=== PATIENT | female | born 1970 | race Hispanic/Latino ===

== ENCOUNTER 2017-11-09 02:17 | Inpatient (IN) | payer BC, MEDICAID ==
[2017-11-09] MEDS ORDERED: Sodium Chloride 0.9% 1,000 ML IV SCH ×2 (03:45→20:30)
--- NOTE | 2017-11-09 05:19 | ED PDOC ---
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 Describes pain as sudden onset sharp pain radiating from the RLQ to the right groin area. Reports (+) nausea and vomiting, but (-) diarrhea, fever, or urinary symptoms. Denies ever experiencing this pain before. Denies history of kidney stones. PCP: None (Opal Sandoval PA-C) Past Medical History Reviewed: Historical Data, Nursing Documentation, Vital Signs - Medical History PMH: No Chronic Diseases - Surgical History Surgical History: No Surg Hx - Family History Family History: States: Unknown Family Hx - Living Arrangements Living Arrangements: With Family <Opal Sandoval PA-C - Last Filed: 11/09/17 05:58> <Stephane Suggs - Last Filed: 11/09/17 06:42> <Ashlyn Burrell - Last Filed: 11/09/17 07:31> Vital Signs: Last Vital Signs Temp 98.6 F 11/09/17 02:51 Pulse 60 11/09/17 02:51 Resp 16 11/09/17 02:51 BP 126/49 L 11/09/17 02:51 Pulse Ox 98 11/09/17 05:59 - Home Medications Home Medications: Ambulatory Orders Medication Instructions Recorded No Known Home Med 08/31/16 - Allergies Allergies/Adverse Reactions: Allergies Allergy/AdvReac Type Severity Reaction Status Date / Time No Known Allergies Allergy Verified 08/31/16 11:20 Review of Systems ROS Statement: Except As Marked, All Systems Reviewed And Found Negative Constitutional: Negative for: Fever Gastrointestinal: Positive for: Nausea, Vomiting, Abdominal Pain. Negative for : Diarrhea Genitourinary Female: Negative for: Dysuria, Frequency, Incontinence, Hematuria <Opal Sandoval PA-C - Last Filed: 11/09/17 05:58> Physical Exam - Reviewed Nursing Documentation Reviewed: Yes Vital Signs Reviewed: Yes <Opal Sandoval PA-C - Last Filed: 11/09/17 05:58> <Stephane Suggs - Last Filed: 11/09/17 06:42> <Sa Ashantiu Mark - Last Filed: 11/09/17 07:31> - Physical Exam Comments: GENERAL: AAOx2, in mild painful distress. SKIN: Warm, dry; (-) cyanosis. EYES: (-) conjunctival pallor, (-) scleral icterus. ENMT: Mucous membranes dry. NECK: (-) tenderness, (-) stiffness, (-) lymphadenopathy. CHEST AND RESPIRATORY: (-) rales, (-) rhonchi, (-) wheezes; breath sounds equal bilaterally. HEART AND CARDIOVASCULAR: (-) irregularity; (-) murmur, (-) gallop. ABDOMEN AND GI: (-) distention. Bowel sounds active; (+) tenderness in right flank, (-) guarding, (-) rebound, (-) palpable masses, (-) CVA tenderness. EXTREMITIES: (-) deformity, (-) edema, (+) distal pulses. NEURO AND PSYCH: Mental status as above; (-) focal findings. BACK: no CVA tenderness (Opal Sandoval PA-C) - Laboratory Results Result Diagrams: 11/09/17 05:08 11/09/17 05:08 - ECG O2 Sat by Pulse Oximetry: 98 (RA) Pulse Ox Interpretation: Normal <Opal Sandoval PA-C - Last Filed: 11/09/17 05:58> - Laboratory Results Result Diagrams: 11/09/17 05:08 11/09/17 05:08 <Stephane Suggs - Last Filed: 11/09/17 06:42> - Laboratory Results Result Diagrams: 11/09/17 05:08 11/09/17 05:08 <BurrellSa odiliariya Flores - Last Filed: 11/09/17 07:31> Medical Decision Making <Opal Sandoval PA-C - Last Filed: 11/09/17 05:58> <Stephane Suggs - Last Filed: 11/09/17 06:42> <Ashlyn Burrell Mark - Last Filed: 11/09/17 07:31> Medical Decision Makin Initial plan: * CT A/P * Labs * UPreg * NS IV * Toradol 30mg IVP * UCx * UA 0421 * Zofran Inj 4mg IVP Scribe Attestation: Documented by Hafsa Knapp acting as a scribe for Opal Sandoval PA-C. Scribe Attestation: All medical record entries made by the Scribe were at my direction and personally dictated by me. I have reviewed the chart and agree that the record accurately reflects my personal performance of the history, physical exam, medical decision making, and the department course for this patient. I have also personally directed, reviewed, and agree with the discharge instructions and disposition. (Opal Sandoval PA-C) 3556 FINDINGS: Lower thorax: No acute findings. ABDOMEN: Liver: Unremarkable. Gallbladder and bile ducts: Unremarkable. No calcified stones. No ductal dilation. Pancreas: Unremarkable. No ductal dilation. Spleen: Unremarkable. No splenomegaly. Adrenals: Unremarkable. No mass. Kidneys and ureters: Slight right perinephric induration with mild right hydronephrosis which extends to a large right UPJ calculus which measures 12 x 7 x 13 mm. Stomach and bowel: Unremarkable. No obstruction. No mucosal thickening. Appendix: A normal appendix is seen. PELVIS: Bladder: Unremarkable. No stones. Reproductive: Unremarkable as visualized. ABDOMEN and PELVIS: Intraperitoneal space: Unremarkable. No free air. No significant fluid collection. Bones/joints: No acute fracture. No dislocation. Soft tissues: Small fat filled umbilical hernia. Vasculature: Unremarkable. No abdominal aortic aneurysm. Lymph nodes: Unremarkable. No enlarged lymph nodes. IMPRESSION: 1. Large right UPJ calculus measuring 12 x 7 x 13 mm with secondary obstructive uropathy of the right upper tract which is new since 03/17/2011. 2. Otherwise negative CT abdomen/pelvis which is otherwise unchanged. [address] 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 Believes that stone will likely not pass on its own. He will consult on patient and recommends admission (INPATIENT MED/SURG) under Dr. Mcintyre. Scribe Attestation: Documented by Hafsa Knapp acting as a scribe for Stephane Suggs MD. Scribe Attestation: All medical record entries made by the Scribe were at my direction and personally dictated by me. I have reviewed the chart and agree that the record accurately reflects my personal performance of the history, physical exam, medical decision making, and the department course for this patient. I have also personally directed, reviewed, and agree with the discharge instructions and disposition. (Stephane Suggs) blood lactate 5.8. Information conveyed to Dr. Suggs re: patient who has already been admitted. Per discussion with Dr. Mcintyre, change admission location to Telemetry. (Ashlyn Burrell) Disposition <Opal Sandoval PA-C - Last Filed: 11/09/17 05:58> - Patient ED Disposition Is Patient to be Admitted: Yes Discussed With DrTevin: Efrain Mosher - Disposition Disposition Time: 06:43 - Pt Status Changed To: Hospital Disposition Of: Inpatient (INPATIENT MED/SURG) - Admit Certification Admit to Inpatient:: After my assessment, the patient will require hospitalization for at least two midnights. This is because of the severity of symptoms shown, intensity of services needed, and/or the medical risk in this patient being treated as an outpatient. <Stephane Suggs - Last Filed: 11/09/17 06:42> - Patient ED Disposition Is Patient to be Admitted: Yes Doctor Will See Patient In The: Hospital - POA Present On Arrival: None <Ashlyn Burrell - Last Filed: 11/09/17 07:31> - Clinical Impression Clinical Impression: Back pain - Disposition Condition: FAIR
[2017-11-09 05:36] LABS: BASO % 0.3 % (0.0-2.0); EOS # 0.1 K/uL (0.0-0.7); EOS % 0.3 % (0.0-4.0); HEMOGLOBIN 13.8 g/dL (12.0-16.0); LYMPH # 1.2 K/uL (1.0-4.3); LYMPH % 6.7 % (20.0-40.0); MEAN CELL VOLUME 94.4 fl (81.0-99.0); MEAN CORPUSCULAR HEMOGLOBIN 30.8 pg (27.0-31.0); MEAN CORPUSCULAR HGB CONC 32.6 g/dL (33.0-37.0); MEAN PLATELET VOLUME 10.8 fl (7.2-11.7); MONO # 0.4 K/uL (0.0-0.8); NEUT # 16.5 K/uL (1.8-7.0); NEUT % 90.7 % (50.0-75.0); PLATELET COUNT 144 K/uL (130-400); RBC 4.47 Mil/uL (3.80-5.20); WHITE BLOOD COUNT 18.2 K/uL (4.8-10.8)
[2017-11-09 05:52] LABS: SQUAMOUS EPITHIAL 10 /hpf (0-5); URINE BILIRUBIN NEGATIVE (NEGATIVE); URINE BLOOD MODERATE (NEGATIVE); URINE CLARITY CLOUDY (Clear); URINE COLOR YELLOW (YELLOW); URINE GLUCOSE (UA) NEG (Normal); URINE LEUKOCYTE ESTERASE LARGE Leu/uL (Negative); URINE NITRATE NEGATIVE (NEGATIVE); URINE PROTEIN 30 mg/dL (NEGATIVE); URINE UROBILINOGEN 0.2-1.0 mg/dL (0.2-1.0); WBC CLUMPS FEW /hpf
[2017-11-09 05:57] LABS: ALB/GLOB RATIO 1.3 (1.0-2.1); ALBUMIN 4.7 g/dL (3.5-5.0); ALT/SGPT 19 U/L (9-52); AST/SGOT 28 U/L (14-36); BLOOD UREA NITROGEN 16 mg/dl (7-17); CALCIUM 9.5 mg/dL (8.4-10.2); GFR AFRICAN-AMERICAN > 60; GFR NON-AFRICAN AMERICAN 59
[2017-11-09] MEDS ORDERED: Sodium Chloride 0.9% 1,000 ML IV STA (06:41)
[2017-11-09] MEDS ORDERED: cefTRIAXone 2 GM in Sodium Chloride 0.9% 100 ML IVPB STA (06:47)
[2017-11-09 07:15] LABS: VENOUS BLOOD GAS BASE EXCESS -9.6 mmol/L (0.0-2.0); VENOUS BLOOD GAS PCO2 87 mmHg (40-60); VENOUS BLOOD GAS PO2 32 mm/Hg (30-55); VENOUS BLOOD PH 7.03 (7.32-7.43)
[2017-11-09] MEDS ORDERED: levoFLOXacin 750 mg in D5W 750 MG/150 ML BAG IVPB SCH (09:00)
--- NOTE | 2017-11-09 09:50 | CT ---
PROCEDURE: CT Abdomen and Pelvis without intravenous contrast HISTORY: R flank pain COMPARISON: CT scan of the abdomen and pelvis dated 03/17/2011 TECHNIQUE: Contiguous images were obtained from the domes of the diaphragms to the upper thighs without the administration of intravenous contrast. Oral contrast was not administered. Radiation dose: Total exam DLP = 1102.3 mGy-cm. This CT exam was performed using one or more of the following dose reduction techniques: Automated exposure control, adjustment of the mA and/or kV according to patient size, and/or use of iterative reconstruction technique. FINDINGS: LOWER THORAX: Unremarkable. LIVER: Unremarkable. No gross lesion or ductal dilatation. GALLBLADDER AND BILE DUCTS: Unremarkable. PANCREAS: Unremarkable. No gross lesion or ductal dilatation. SPLEEN: Unremarkable. ADRENALS: Unremarkable. No mass. KIDNEYS AND URETERS: Right ureteropelvic junction 1.3 x 0.7 cm obstructive calculus causing mild hydronephrosis. No solid mass. VASCULATURE: Unremarkable. No aortic aneurysm. BOWEL: Unremarkable. No obstruction. No gross mural thickening. APPENDIX: Unremarkable. Normal appendix. PERITONEUM: Small fat containing umbilical hernia. No free fluid. No free air. LYMPH NODES: Unremarkable. No enlarged lymph nodes. BLADDER: Unremarkable. REPRODUCTIVE: Unremarkable. BONES: No acute fracture. OTHER FINDINGS: None. IMPRESSION: Obstructive right ureteral pelvic junction 1.3 cm calculus causing mild hydronephrosis.
--- NOTE | 2017-11-09 10:27 | CP.PCM.HP ---
Past Patient History - Past Social History Smoking Status: Heavy Smoker > 10 Cigarettes Daily - PSYCHIATRIC Hx Substance Use: No - SURGICAL HISTORY Hx Section: Yes - ANESTHESIA Hx Anesthesia: Yes Hx Anesthesia Reactions: No Meds Allergies/Adverse Reactions: Allergies Allergy/AdvReac Type Severity Reaction Status Date / Time No Known Allergies Allergy Verified 08/31/16 11:20 Results - Vital Signs Recent Vital Signs: Last Vital Signs Temp 102.8 F H 11/09/17 10:01 Pulse 101 H 11/09/17 09:21 Resp 18 11/09/17 09:21 BP 104/56 L 11/09/17 09:28 Pulse Ox 98 11/09/17 09:21 - Labs Result Diagrams: 11/09/17 05:08 11/09/17 05:08 Labs: Laboratory Results - last 24 hr 11/09/17 11/09/17 11/09/17 05:08 05:08 05:20 WBC 18.2 H D RBC 4.47 Hgb 13.8 Hct 42.2 MCV 94.4 MCH 30.8 MCHC 32.6 L RDW 13.0 Plt Count 144 MPV 10.8 Neut % (Auto) 90.7 H Lymph % (Auto) 6.7 L [place] % (Auto) 2.0 Eos % (Auto) 0.3 Baso % (Auto) 0.3 Neut # (Auto) 16.5 H Lymph # (Auto) 1.2 [place] # (Auto) 0.4 Eos # (Auto) 0.1 Baso # (Auto) 0.0 pO2 VBG pH VBG pCO2 VBG HCO3 VBG Total CO2 VBG O2 Sat (Calc) VBG Base Excess VBG Potassium Glucose Lactate FiO2 Crit Value Called To Crit Value Called By Crit Value Read Back Blood Gas Notified Time Sodium 145 Potassium 4.2 Chloride 103 Carbon Dioxide 27 Anion Gap 19 BUN 16 Creatinine 1.0 Est GFR ( Amer) > 60 Est GFR (Non-Af Amer) 59 Random Glucose 151 H Calcium 9.5 Total Bilirubin 0.5 AST 28 ALT 19 Alkaline Phosphatase 72 Total Protein 8.1 Albumin 4.7 Globulin 3.5 Albumin/Globulin Ratio 1.3 Venous Blood Potassium Urine Color Yellow Urine Clarity Cloudy Urine pH 5.0 Ur Specific [place] 1.030 Urine Protein 30 Urine Glucose (UA) Neg Urine Ketones Negative Urine Blood Moderate Urine Nitrate Negative Urine Bilirubin Negative Urine Urobilinogen 0.2-1.0 Ur Leukocyte Esterase Large Urine RBC (Auto) 31 H Urine WBC Clumps (Auto) Few H Urine Microscopic WBC 329 H Ur Squamous Epith Cells 10 H 11/09/17 07:07 WBC RBC Hgb Hct MCV MCH MCHC RDW Plt Count MPV Neut % (Auto) Lymph % (Auto) [place] % (Auto) Eos % (Auto) Baso % (Auto) Neut # (Auto) Lymph # (Auto) [place] # (Auto) Eos # (Auto) Baso # (Auto) pO2 32 VBG pH 7.03 L* VBG pCO2 87 H* VBG HCO3 15.7 VBG Total CO2 25.7 VBG O2 Sat (Calc) 55.8 VBG Base Excess -9.6 L VBG Potassium > 20.0 H* Glucose 131 H Lactate 5.8 H* FiO2 21.0 Crit Value Called To regina Navarro Crit Value Called By 203 Crit Value Read Back Y Blood Gas Notified Time 714 Sodium 132.0 Potassium Chloride 98.0 Carbon Dioxide Anion Gap BUN Creatinine Est GFR ( Amer) Est GFR (Non-Af Amer) Random Glucose Calcium Total Bilirubin AST ALT Alkaline Phosphatase Total Protein Albumin Globulin Albumin/Globulin Ratio Venous Blood Potassium > 20.0 H* Urine Color Urine Clarity Urine pH Ur Specific [place] Urine Protein Urine Glucose (UA) Urine Ketones Urine Blood Urine Nitrate Urine Bilirubin Urine Urobilinogen Ur Leukocyte Esterase Urine RBC (Auto) Urine WBC Clumps (Auto) Urine Microscopic WBC Ur Squamous Epith Cells
[2017-11-09] MEDS ORDERED: Potassium CL 10mEq/100ml 100 ML IVPB SCH (11:00)
[2017-11-09 11:01] LABS: BANDS 2 % (0-2); LYMPHOCYTE 8 % (20-50); MONOCYTE 6 % (0-10); NEUTROPHIL 84 % (42-75); PLATELET ESTIMATE SLIGHTLY DECREASED (NORMAL); TOTAL CELLS COUNTED 100
[2017-11-09 11:02] LABS: ANISOCYTOSIS SLIGHT; LARGE PLATELETS PRESENT; MICROCYTOSIS SLIGHT; OVALOCYTES SLIGHT
[2017-11-09 11:03] LABS: SPHEROCYTES MODERATE
--- NOTE | 2017-11-09 11:27 | RAD ---
HISTORY: kidney stone COMPARISON: No prior. FINDINGS: BOWEL: Normal. No obstruction. No free air. BONES: Normal. OTHER FINDINGS: 10 millimeter calcification overlying the ureteral pelvic junction of the right kidney. IMPRESSION: Right-sided nephrolith.
[2017-11-09 11:58] VITALS: BMI 38.6
[2017-11-09 16:17] LABS: INR 1.1 (0.9-1.2); PROTHROMBIN TIME 12.7 Seconds (9.8-13.1)
[2017-11-09] MEDS ORDERED: Lidocaine 2% Jelly (Uro-Jet) ONE (17:43)
[2017-11-09] MEDS ORDERED: Iohexol 300 100 ML IJ ONE (17:44)
[2017-11-09] MEDS ORDERED: cefTRIAXone IV 1 gm in Dextros 50 ML IVPB ONE (17:44)
[2017-11-09] MEDS: Sodium Chloride 0.9% 1,000 ML IV SCH (18:06)
[2017-11-09] MEDS ORDERED: Midazolam 2 MG/2 ML VIAL ONE (19:44)
[2017-11-09] MEDS ORDERED: Propofol 10 mg/ml Inj (20 ML) ONE (19:44)
[2017-11-09] MEDS ORDERED: Sodium Chloride 0.9% 1,000 ML IV ONE ×2 (19:45→20:23)
[2017-11-09] MEDS ORDERED: Lidocaine 2% Jelly (5 ml) TOP ONE (19:45)
[2017-11-09] MEDS ORDERED: Lidocaine 1% 5ml Abboject IV ONE (19:46)
[2017-11-09] MEDS ORDERED: Phenylephrine 10 mg/ml Inj ONE ×2 (19:56→20:02)
[2017-11-09] MEDS ORDERED: ePHEDrine 50 mg/ml Inj ONE (19:59)
[2017-11-09] MEDS ORDERED: Acetaminophen-Codeine 300/30 mg Tab PO PRN (20:18)
[2017-11-10] MEDS: Sodium Chloride 0.9% 1,000 ML IV SCH ×2 (03:00→13:59)
[2017-11-10 08:02] LABS: CALCIUM 7.6 mg/dL (8.4-10.2)
[2017-11-10 08:03] LABS: HEMOGLOBIN 11.2 g/dL (12.0-16.0); MEAN CELL VOLUME 93.6 fl (81.0-99.0); MEAN CORPUSCULAR HEMOGLOBIN 31.1 pg (27.0-31.0); MEAN CORPUSCULAR HGB CONC 33.2 g/dL (33.0-37.0); RBC 3.6 Mil/uL (3.80-5.20); RED CELL DISTRIBUTION WIDTH 13.2 % (11.5-14.5); WHITE BLOOD COUNT 18.6 K/uL (4.8-10.8)
[2017-11-10] MEDS: cefTRIAXone 1 gm/NS 100ML IVPB SCH (08:59)
[2017-11-10] MEDS ORDERED: cefTRIAXone (Rocephin) 2 gm Inj IVPB SCH (09:00)
--- NOTE | 2017-11-10 11:50 | RAD ---
HISTORY: Status post right stent placement COMPARISON: Comparison made with prior study 11/09/2017 at 11 a.m. comparison also made with CT scan of the abdomen and pelvis 10/29/2017. FINDINGS: Current study reveals interval placement right ureteral stent. Previously noted calculus in the right UPJ region on prior CT scan is not visible on this study. BOWEL: Nonobstructive/nonspecific bowel gas pattern. BONES: Minor multilevel degenerative spondylosis. OTHER FINDINGS: None. IMPRESSION: In situ right ureteral stent. Previously noted right UPJ calculus is not visible on this study.
--- NOTE | 2017-11-10 12:50 | RAD ---
PROCEDURE: Intraoperative Fluoroscopy. HISTORY: CYSTO FINDINGS: Fluoroscopic assistance was provided . Please refer to the operative report from JAVIER Metzger.
--- NOTE | 2017-11-11 00:13 | CP.PCM.PN ---
Subjective - Date & Time of Evaluation Date of Evaluation: 11/10/17 Time of Evaluation: 17:10 Objective - Vital Signs/Intake and Output Vital Signs (last 24 hours): Temp Pulse Resp BP Pulse Ox 98.6 F 73 14 104/68 98 11/10/17 20:36 11/10/17 20:36 11/10/17 20:36 11/10/17 20:36 11/10/17 20:36 Intake and Output: 11/10/17 11/11/17 18:59 06:59 Intake Total 1800 Output Total 4 Balance 1796 - Medications Medications: Current Medications Acetaminophen (Tylenol 325mg Tab) 650 mg PO Q4 PRN PRN Reason: Fever >100.4 F Last Admin: 11/09/17 15:30 Dose: 650 mg Acetaminophen/Codeine Phosphate (Tylenol/Codeine 300 Mg/30 Mg) 1 tab PO Q4 PRN PRN Reason: Pain, moderate (4-7) Last Admin: 11/10/17 22:21 Dose: 1 tab Sodium Chloride (Sodium Chloride 0.9%) 1,000 mls @ 1,000 mls/hr IV .Q1H MUNA Last Admin: 11/09/17 05:30 Dose: 1,000 mls/hr Ceftriaxone Sodium 1 gm/ (Sodium Chloride) 100 mls @ 100 mls/hr IVPB DAILY MUNA Last Admin: 11/10/17 08:59 Dose: 100 mls/hr Sodium Chloride (Sodium Chloride 0.9%) 1,000 mls @ 999 mls/hr IV .Q1H1M MUNA Sodium Chloride (Sodium Chloride 0.9%) 1,000 mls @ 100 mls/hr IV .Q10H MUNA Stop: 11/11/17 19:40 Morphine Sulfate (Morphine) 2 mg IVP Q4 PRN PRN Reason: Pain, severe (8-10) Last Admin: 11/09/17 13:31 Dose: 2 mg - Labs Labs: 11/10/17 07:12 11/10/17 07:12 PT 12.7 Seconds (9.8-13.1) 11/09/17 15:54 INR 1.1 (0.9-1.2) 11/09/17 15:54
[2017-11-11] MEDS: Sodium Chloride 0.9% 1,000 ML IV SCH ×2 (05:29→17:57)
[2017-11-11 08:05] LABS: HEMOGLOBIN 10.7 g/dL (12.0-16.0); MEAN CORPUSCULAR HEMOGLOBIN 30.4 pg (27.0-31.0); MEAN CORPUSCULAR HGB CONC 32.4 g/dL (33.0-37.0); RBC 3.51 Mil/uL (3.80-5.20); RED CELL DISTRIBUTION WIDTH 13.4 % (11.5-14.5); WHITE BLOOD COUNT 12.7 K/uL (4.8-10.8)
[2017-11-11 08:14] LABS: BLOOD UREA NITROGEN 11 mg/dl (7-17); CALCIUM 7.9 mg/dL (8.4-10.2); GFR AFRICAN-AMERICAN > 60; GFR NON-AFRICAN AMERICAN > 60
[2017-11-11] MEDS: cefTRIAXone 1 gm/NS 100ML IVPB SCH (08:57)
--- NOTE | 2017-11-11 15:14 | RAD ---
HISTORY: pre -op COMPARISON: 11/07/2012 TECHNIQUE: Chest PA and lateral FINDINGS: LUNGS: No active pulmonary disease. PLEURA: No significant pleural effusion identified. No pneumothorax apparent. CARDIOVASCULAR: Normal. OSSEOUS STRUCTURES: No significant abnormalities. VISUALIZED UPPER ABDOMEN: Normal. OTHER FINDINGS: None. IMPRESSION: No active disease.
[2017-11-11] MEDS ORDERED: Sodium Chloride 0.9% 1,000 ML IV SCH (20:00)
[2017-11-12 05:57] LABS: BASO % 0.3 % (0.0-2.0); EOS # 0.1 K/uL (0.0-0.7); HEMOGLOBIN 11.3 g/dL (12.0-16.0); LYMPH # 2.9 K/uL (1.0-4.3); LYMPH % 25.3 % (20.0-40.0); MEAN CORPUSCULAR HEMOGLOBIN 30.8 pg (27.0-31.0); MEAN CORPUSCULAR HGB CONC 33.2 g/dL (33.0-37.0); MEAN PLATELET VOLUME 11.4 fl (7.2-11.7); MONO # 0.9 K/uL (0.0-0.8); MONO % 7.4 % (0.0-10.0); NEUT # 7.6 K/uL (1.8-7.0); NRBC % 0.1 % (0.0-0.0); RBC 3.66 Mil/uL (3.80-5.20); RED CELL DISTRIBUTION WIDTH 13.2 % (11.5-14.5); WHITE BLOOD COUNT 11.5 K/uL (4.8-10.8)
[2017-11-12 05:58] LABS: ALB/GLOB RATIO 1.1 (1.0-2.1); ALBUMIN 3.2 g/dL (3.5-5.0); ALT/SGPT 28 U/L (9-52); AST/SGOT 38 U/L (14-36); BLOOD UREA NITROGEN 9 mg/dl (7-17); CALCIUM 8.5 mg/dL (8.4-10.2); GFR AFRICAN-AMERICAN > 60; GFR NON-AFRICAN AMERICAN > 60
--- NOTE | 2017-11-12 07:28 | CON ---
HISTORY OF PRESENT ILLNESS: The patient admitted through the Emergency Room with right flank pain. CT scan revealed obstructing 10-12ml calculus obstructing the UPJ. The patient is being treated for sepsis, scheduled for cysto insertion stent. Efrain Mosher MD
[2017-11-12] MEDS: cefTRIAXone 1 gm/NS 100ML IVPB SCH (08:51)
[2017-11-12 09:14] VITALS: PULSE 60
[2017-11-12 09:15] VITALS: BP 130/71; RESP 20; TEMP 98.6; O2SAT 99
--- NOTE | 2017-11-12 09:17 | CP.PCM.PCO ---
Assessment & Plan - Assessment and Plan (Free Text) Assessment: pt. sitting up in bed, feeling well this morning, denies sob, fever ,chills, abd pain. voiding freely. pt. cleared for discharge to Home today by and Rx for meds provided to pt. cont. Cipro 500 mg po bid x 7 days cont. bacid po x 7 d pt. will f/u with in 1 week pt. has f/u appointment today with \ Rx for bloodwork outpatient provided to r/u thrombocytopenia
--- NOTE | 2017-11-12 23:43 | CP.PCM.PN ---
Subjective - Date & Time of Evaluation Date of Evaluation: 11/11/17 Time of Evaluation: 16:35 Objective - Vital Signs/Intake and Output Vital Signs (last 24 hours): Temp Pulse Resp BP Pulse Ox 98.6 F 60 20 130/71 99 11/12/17 09:00 11/12/17 09:00 11/12/17 09:00 11/12/17 09:00 11/12/17 09:00 - Labs Labs: 11/12/17 04:20 11/12/17 04:20 PT 12.7 Seconds (9.8-13.1) 11/09/17 15:54 INR 1.1 (0.9-1.2) 11/09/17 15:54
--- NOTE | 2017-11-12 23:44 | CP.PCM.DIS ---
Provider - Provider Date of Admission: 11/09/17 06:43 Attending physician: Annika Mcintyre MD Time Spent in preparation of Discharge (in minutes): 35 Hospital Course - Lab Results Lab Results: Micro Results 11/09/17 05:20 Urine Urine Culture - Final Escherichia Coli Most Recent Lab Values WBC 11.5 K/uL (4.8-10.8) H 11/12/17 04:20 RBC 3.66 Mil/uL (3.80-5.20) L 11/12/17 04:20 Hgb 11.3 g/dL (12.0-16.0) L 11/12/17 04:20 Hct 34.0 % (34.0-47.0) 11/12/17 04:20 MCV 93.0 fl (81.0-99.0) 11/12/17 04:20 MCH 30.8 pg (27.0-31.0) 11/12/17 04:20 MCHC 33.2 g/dL (33.0-37.0) 11/12/17 04:20 RDW 13.2 % (11.5-14.5) 11/12/17 04:20 Plt Count 88 K/uL (130-400) L 11/12/17 04:20 MPV 11.4 fl (7.2-11.7) 11/12/17 04:20 Neut % (Auto) 66.0 % (50.0-75.0) 11/12/17 04:20 Lymph % (Auto) 25.3 % (20.0-40.0) 11/12/17 04:20 [place] % (Auto) 7.4 % (0.0-10.0) 11/12/17 04:20 Eos % (Auto) 1.0 % (0.0-4.0) 11/12/17 04:20 Baso % (Auto) 0.3 % (0.0-2.0) 11/12/17 04:20 Neut # (Auto) 7.6 K/uL (1.8-7.0) H 11/12/17 04:20 Lymph # (Auto) 2.9 K/uL (1.0-4.3) 11/12/17 04:20 [place] # (Auto) 0.9 K/uL (0.0-0.8) H 11/12/17 04:20 Eos # (Auto) 0.1 K/uL (0.0-0.7) 11/12/17 04:20 Baso # (Auto) 0.0 K/uL (0.0-0.2) 11/12/17 04:20 Neutrophils % (Manual) 84 % (42-75) H 11/09/17 05:08 Band Neutrophils % 2 % (0-2) 11/09/17 05:08 Lymphocytes % (Manual) 8 % (20-50) L 11/09/17 05:08 Monocytes % (Manual) 6 % (0-10) 11/09/17 05:08 Platelet Estimate Slightly decreased (NORMAL) L 11/09/17 05:08 Large Platelets Present 11/09/17 05:08 Anisocytosis (manual) Slight 11/09/17 05:08 Microcytosis (manual) Slight 11/09/17 05:08 Macrocytosis (manual) Slight 11/09/17 05:08 Spherocytes Moderate 11/09/17 05:08 Ovalocytes Slight 11/09/17 05:08 PT 12.7 Seconds (9.8-13.1) 11/09/17 15:54 INR 1.1 (0.9-1.2) 11/09/17 15:54 pO2 32 mm/Hg (30-55) 11/09/17 07:07 VBG pH 7.03 (7.32-7.43) L* 11/09/17 07:07 VBG pCO2 87 mmHg (40-60) H* 11/09/17 07:07 VBG HCO3 15.7 mmol/L 11/09/17 07:07 VBG Total CO2 25.7 mmol/L (22-28) 11/09/17 07:07 VBG O2 Sat (Calc) 55.8 % (40-65) 11/09/17 07:07 VBG Base Excess -9.6 mmol/L (0.0-2.0) L 11/09/17 07:07 VBG Potassium > 20.0 mmol/L (3.6-5.2) H* 11/09/17 07:07 Sodium 132.0 mmol/L (132-148) 11/09/17 07:07 Chloride 98.0 mmol/L (98-107) 11/09/17 07:07 Glucose 131 mg/dL (65-105) H 11/09/17 07:07 Lactate 5.8 mmol/L (0.7-2.1) H* 11/09/17 07:07 FiO2 21.0 % 11/09/17 07:07 Crit Value Called To regina Navarro 11/09/17 07:07 Crit Value Called By 203 11/09/17 07:07 Crit Value Read Back Y 11/09/17 07:07 Blood Gas Notified Time 714 11/09/17 07:07 Sodium 143 mmol/l (132-148) 11/12/17 04:20 Potassium 4.2 MMOL/L (3.6-5.0) 11/12/17 04:20 Chloride 110 mmol/L (98-107) H 11/12/17 04:20 Carbon Dioxide 24 mmol/L (22-30) 11/12/17 04:20 Anion Gap 13 (10-20) 11/12/17 04:20 BUN 9 mg/dl (7-17) 11/12/17 04:20 Creatinine 0.8 mg/dl (0.7-1.2) 11/12/17 04:20 Est GFR ( Amer) > 60 11/12/17 04:20 Est GFR (Non-Af Amer) > 60 11/12/17 04:20 Random Glucose 101 mg/dL (65-105) 11/12/17 04:20 Calcium 8.5 mg/dL (8.4-10.2) 11/12/17 04:20 Magnesium 2.0 MG/DL (1.6-2.3) 11/12/17 04:20 Total Bilirubin 0.4 mg/dl (0.2-1.3) 11/12/17 04:20 AST 38 U/L (14-36) H D 11/12/17 04:20 ALT 28 U/L (9-52) 11/12/17 04:20 Alkaline Phosphatase 64 U/L (38-126) 11/12/17 04:20 Total Protein 6.2 G/DL (6.3-8.2) L 11/12/17 04:20 Albumin 3.2 g/dL (3.5-5.0) L D 11/12/17 04:20 Globulin 3.0 gm/dL (2.2-3.9) 11/12/17 04:20 Albumin/Globulin Ratio 1.1 (1.0-2.1) 11/12/17 04:20 Venous Blood Potassium > 20.0 mmol/L (3.6-5.2) H* 11/09/17 07:07 Urine Color Yellow (YELLOW) 11/09/17 05:20 Urine Clarity Cloudy (Clear) 11/09/17 05:20 Urine pH 5.0 (5.0-8.0) 11/09/17 05:20 Ur Specific [place] 1.030 (1.003-1.030) 11/09/17 05:20 Urine Protein 30 mg/dL (NEGATIVE) 11/09/17 05:20 Urine Glucose (UA) Neg mg/dL (Normal) 11/09/17 05:20 Urine Ketones Negative mg/dL (NEGATIVE) 11/09/17 05:20 Urine Blood Moderate (NEGATIVE) 11/09/17 05:20 Urine Nitrate Negative (NEGATIVE) 11/09/17 05:20 Urine Bilirubin Negative (NEGATIVE) 11/09/17 05:20 Urine Urobilinogen 0.2-1.0 mg/dL (0.2-1.0) 11/09/17 05:20 Ur Leukocyte Esterase Large [place]/uL (Negative) 11/09/17 05:20 Urine RBC (Auto) 31 /hpf (0-3) H 11/09/17 05:20 Urine WBC Clumps (Auto) Few /hpf (NONE) H 11/09/17 05:20 Urine Microscopic WBC 329 /hpf (0-5) H 11/09/17 05:20 Ur Squamous Epith Cells 10 /hpf (0-5) H 11/09/17 05:20 Discharge Plan - Discharge Medications Prescriptions: Lactobacillus Acidophilus [Bacid Acidophilus] 1 cap PO BID #14 cap Ciprofloxacin HCl [Cipro] 500 mg PO Q12 #14 tablet - Follow Up Plan Condition: FAIR Disposition: HOME/ ROUTINE Instructions: Back Pain (GEN) Additional Instructions: Activity as tolerated, Heart healthy, low fat, low cholesterol diet.Follow up with Dr Mosher to call for appointment. For repeat CBC with diff and BMP Nov. Referrals: Annika Mcintyre MD [Staff Provider] - Efrain Mosher MD [Medical Doctor] -
--- NOTE | 2017-11-13 15:14 | PQF SEPSIS ---
Dr. Mcintyre Consultation report dated 11/[address] Mosher documented "pt is being treated for sepsis." After study is pt currently being treated for a diagnosis of sepsis? This form is a permanent part of the medical record Clarification of your documentation is requested to better reflect the severity of illness and intensity of treatment of your patient. Indicators present [] Temp < 96.8 or > 100.4 [] WBC count > 12,000/mm3 or <000/mm3 or 10% immature neutrophils [] Heart Rate > 90 [] Respiratory Rate > 20 [] Fever or hypothermia [] Chills [] Positive blood cultures [] Hypotension [] Metabolic acidosis (Elevated lactate level, anion gap or reduced blood pH) [] Acute confusion /Altered Mental Status [] Shock [] Other: [] Location in the medical record that reflects the above clinical findings: [] Treatment Provided: [] PHYSICIAN'S RESPONSE Based on your medical judgment of the clinical indicators outlined above, are you treating this patient for a known or suspected: [X] Sepsis / Septicemia Please specify organism if known [] [] SIRS (Systemic Inflammatory Response Syndrome) [] Severe Sepsis (Sepsis with Associated Organ Dysfunction) [] Fever of Unknown Origin [] Other, please indicate: [] [] If Unable to Determine, please check the box, sign and date. Present On Admission (POA) Indicator: [X] Present at the time of admission [] Not present at the time of admission [] Clinically Undetermined In responding to this query, please exercise your independent professional judgment. The fact that a question is asked does not imply that any particular answer is desired or expected. Thank you for your clarification on this documentation. If you have any questions please call:[ ] * Thank you, [ ]Chichi Bhandari youth leader [employer]
== END 2017-11-12 11:13 | disposition home or self-care (01) | DRG 872 ==
LOC: H.ER 02:17 → H.ERHOLD 06:43 → H.TEL 11:16
PROVIDERS: ADMIT Internal Medicine; ATTEND Internal Medicine
DX: A41.9 Sepsis, unspecified organism (principal); F17.210 Nicotine dependence, cigarettes, uncomplicated; N13.2 Hydronephrosis with renal and ureteral calculous obstruction; N13.9 Obstructive and reflux uropathy, unspecified